=== PATIENT | male | born 1950 | race Two or more races ===

== ENCOUNTER 2017-11-19 01:43 | Emergency (ER) | payer OTHER ==
[~2017-11-19] VITALS: Ht 172.7 cm; Wt 74.0 kg
[~2017-11-19 01:43] MED LIST: AMLO5TAB4 PO; METO25TA35 PO
[2017-11-19 01:51] VITALS: BP 149/83
[2017-11-19] MEDS ORDERED: ZIPRASIDONE 20 MG INJ IM ONE ×2 (02:18→02:30)
== END 2017-11-19 07:06 | disposition home or self-care (01) ==
LOC: ED 06:45
DX: F10.220 Alcohol dependence with intoxication, uncomplicated (principal); I10 Essential (primary) hypertension
CPT/HCPCS: 70450; 72125; 96372; 99284; J3486

== ENCOUNTER 2019-12-20 10:34 | Emergency (ER) | payer SELFPAY ==
[~2019-12-20] VITALS: Ht 167.6 cm; Wt 69.3 kg
[2019-12-20 11:33] LABS: BASOPHILS # (AUTO) 0.02 x10^3/uL (0-0.1); BASOPHILS % (AUTO) 0 % (0-1); EOSINOPHILS # (AUTO) 0.01 x10^3/uL (0-0.4); EOSINOPHILS % (AUTO) 0 % (1-7); LYMPHOCYTES # (AUTO) 0.94 x10^3/uL (1-3.4); LYMPHOCYTES % (AUTO) 19 % (22-44); MD NO; MEAN CORPUSCULAR HEMOGLOBIN 31.7 pg (27.5-34.5); MEAN CORPUSCULAR HGB CONC 33.9 g/dL (33.2-36.2); MEAN CORPUSCULAR VOLUME 93.5 fL (81-97); MEAN PLATELET VOLUME 10.5 fL (7.4-10.4); MONOCYTES % (AUTO) 10 % (2-9); NEUTROPHILS # (AUTO) 3.43 x10^3/uL (1.8-6.8); NEUTROPHILS % (AUTO) 70 % (42-75); PLATELET COUNT 132 x10^3/uL (130-400); RED BLOOD COUNT 5.11 x10^6/uL (4.38-5.82); RED CELL DISTRIBUTION WIDTH 12.3 % (9.4-14.8)
--- NOTE | 2019-12-20 11:37 | NUR ---
PT HAS CO SOB AND COUGH. DENIES CP, NO N.V VSS. SWABBED FOR COVID
[2019-12-20 11:38] LABS: ALBUMIN 3.2 g/dL (3.4-5.0); ANION GAP 10 mmol/L (5-15); CALCIUM 8.5 mg/dL (8.5-10.1); CHLORIDE 100 mmol/L (98-107); CREATININE 1.34 mg/dL (0.7-1.3)
--- NOTE | 2019-12-20 12:41 | NUR ---
PT RESTING, VSS, NO NEEDS AT THIS TIME.
--- NOTE | 2019-12-20 13:22 | NUR ---
Patient/Caregiver given discharge instructions and they have confirmed that they understand the instructions. Patient ambulatory with steady gait.
[2019-12-20 13:34] VITALS: BP 120/81
== END 2019-12-20 13:36 | disposition home or self-care (01) ==
LOC: ED 13:30
DX: J06.9 Acute upper respiratory infection, unspecified (principal); Z20.828 Contact with and (suspected) exposure to other viral communicable diseases; R05 Cough; M79.10 Myalgia, unspecified site
CPT/HCPCS: 36415; 71045; 80048; 82040; 85025; 99284; U0001